=== PATIENT | male | born 1990 | race African-American/Black ===

== ENCOUNTER 2018-01-29 22:10 | Emergency (ER) | payer OTHER ==
[~2018-01-29] VITALS: Ht 180.3 cm; Wt 86.2 kg
[2018-01-29 22:33] VITALS: BP 146/77
== END 2018-01-30 03:57 | disposition home or self-care (01) ==
LOC: ER 22:10
DX: M62.830 Muscle spasm of back (principal); M54.9 Dorsalgia, unspecified
CPT/HCPCS: 71101